=== PATIENT | female | born 1955 | race Caucasian/White ===

== ENCOUNTER → 2017-06-13 | Outpatient (CLI) | payer MEDICAID ==
[~2017-06-13] MED LIST: ASPI-84; CYCL10TA9; CYMBALTA; HYDR-3714 PO; LSNP20T; METF-380; PREG200C; ROSU10TA12
[2017-06-13 12:05] LABS: BASOPHILS % (AUTO) 1 % (0-10); EOSINOPHILS # (AUTO) 0.1 10^3/uL (0.0-0.3); EOSINOPHILS % (AUTO) 2 % (0-10); LYMPHOCYTES # (AUTO) 2.3 X 10^3 (1.0-4.0); LYMPHOCYTES % (AUTO) 35 % (12-44); MEAN CORPUSCULAR HEMOGLOBIN 31 PG (25-34); MEAN CORPUSCULAR HGB CONC 33 G/DL (32-36); MEAN CORPUSCULAR VOLUME 94 FL (80-99); MEAN PLATELET VOLUME 10.1 FL (7.4-10.4); MONOCYTES # (AUTO) 0.6 X 10^3 (0.0-1.0); MONOCYTES % (AUTO) 9 % (0-12); NEUTROPHILS # (AUTO) 3.5 X 10^3 (1.8-7.8); NEUTROPHILS % (AUTO) 54 % (42-75); PLATELET COUNT 327 10^3/uL (130-400); RED CELL DISTRIBUTION WIDTH 13.9 % (10.0-14.5); WHITE BLOOD COUNT 6.4 10^3/uL (4.3-11.0)
[2017-06-13 12:30] LABS: ERYTHROCYTE SEDIMENTATION RATE 21 MM/HR (0-30)
[2017-06-13 12:36] LABS: BILIRUBIN,DIRECT 0.1 MG/DL (0.0-0.3); BILIRUBIN,INDIRECT 0.3 MG/DL; BILIRUBIN,TOTAL 0.4 MG/DL (0.1-1.0); CREATININE SERUM 0.71 MG/DL (0.60-1.30); TOTAL PROTEIN 7.2 GM/DL (6.4-8.2)
--- NOTE | 2017-06-13 13:55 | Diagnostic Imaging Report ---
EXAMINATION: Bilateral hands. INDICATION: Hand pain. FINDINGS: Three views of each hand were obtained. There are no previous examinations of the hands available for comparison. The left wrist study of 05/30/2009 failed to show any sign of an acute bony abnormality. On this study, there is no fracture, dislocation or acute bony abnormality of either hand. The lunate bone of the right hand is small and misshapen. 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 There is ulnar minus variance as well. Osseous structures seem fairly well mineralized. 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 There are no significant arthritic changes noted otherwise. There is also ulnar minus variance of the left wrist. Soft tissues are unremarkable. IMPRESSION: 1. There is no evidence for an acute bony abnormality. 2. The appearance of the lunate bone on the right does suggest avascular necrosis (Kienb?ck's disease). If further imaging is desired, then MRI would be recommended. 3. 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 No other significant arthritic changes are identified. Dictated by: Dictated on workstation # [id number]
--- NOTE | 2017-06-13 14:18 | Diagnostic Imaging Report ---
EXAMINATION: Three views of the left and three views of the right foot were performed. INDICATION: Arthritis. Positive rheumatoid factor. FINDINGS: The left foot demonstrates mild flattening of the plantar arch. There is a prominent calcaneal spur seen. This could be degenerative. The joint alignment is satisfactory. No erosions of the joints is seen. There are dorsal degenerative spurs between the navicular and cuneiform bones. The right foot also demonstrates flattening of the plantar arch and a prominent calcaneal spur. Degenerative changes along the dorsal aspect of the tarsal bones are seen. No significant arthritic changes or erosions are noted at the MTP and PIP joints in particular. The DIP joints demonstrate mild degenerative changes. IMPRESSION: 1. The findings are likely degenerative related. No erosive arthritis is seen. 2. Mild flattening of the plantar arch is seen bilaterally. Dictated by: Dictated on workstation # [id number]
[2017-06-13 20:45] LABS: HEPATITIS B SURFACE AB INDEX <3.10 mIU/mL (>=10.00)
[2017-06-14 07:28] LABS: HEPATITIS B SURFACE AB INTERP Non-Immune (Immune)
[2017-06-14 07:53] LABS: CYCLIC CITRULLUINATED PEPTIDE 2.4 Units (0.0-19.0)
[2017-06-14 19:12] LABS: TB GOLD QUANTIFERON INTERP Negative (Negative)
[2017-06-15 06:31] LABS: TB GOLD NIL VALUE 0.13 IU/mL (0.00-7.99); TB GOLD TB ANTIGEN-NIL VALUE <0.00 IU/mL (0.00-0.34)
== END ==
LOC: RAD 11:09
PROVIDERS: ATTEND Internal Medicine Rheumatology
DX: M19.042 Primary osteoarthritis, left hand (principal); R93.7 Abnormal findings on diagnostic imaging of other parts of musculoskeletal system; M05.741 Rheumatoid arthritis with rheumatoid factor of right hand without organ or systems involvement; M05.742 Rheumatoid arthritis with rheumatoid factor of left hand without organ or systems involvement; Z79.899 Other long term (current) drug therapy
CPT/HCPCS: 36415; 80076; 82565; 85025; 85652; 86141; 86200; 86430; 86480; 86705; 86706; 86803; 87340